=== PATIENT | female | born 1960 | race Caucasian/White ===

== ENCOUNTER 2017-04-03 12:41 | Observation (INO) ==
[2017-04-03] MEDS ORDERED: Ondansetron ODT 4 MG TAB.RAPDIS SL ONE (13:29)
--- NOTE | 2017-04-03 14:45 | Emergency Department Note ---
Disposition Clinical Impression: Hyponatremia Nausea and vomiting Qualifiers: Vomiting type: unspecified Vomiting Intractability: non-intractable Qualified Code(s): R11.2 - Nausea with vomiting, unspecified Disposition: Admitted As Inpatient Condition: Fair Referrals: Georgia Nuñez CNP [Primary Care Provider] - Forms: ED Satisfaction Letter Time of Disposition: 18:14 General Adult HPI - General Chief complaint: ED Nausea/Vomiting/Diarrhea Stated complaint: N/V/dizzy and cough Time Seen by Provider: 04/03/17 14:28 Source: patient Limitations: no limitations Nursing Notes Reviewed: Yes Vital Signs Reviewed: Yes - History of Present Illness HPI Narrative: Mrs. Howard, a 56yo female, presents from home for evaluation of a 6 week history of cough. This is productive described as thick, green sputum. Associated with congestion. Patient has been treated outpatient by her primary care physician and has completed a seven-day course of Levaquin with no improvement in her symptoms. She subsequent return to primary care provider who has started the patient on a 10 day course of Levaquin. Patient's symptoms have not been improved with outpatient antibiotics, Mucinex, Flonase, or her home albuterol inhaler. Patient also notes subjective fever last weekend she did not measure. She has occasional post tussive emesis. PMH: Hypertension, COPD Habits: Current every day smoker ROS: Positive: As above Negative: Dyspnea, diaphoresis, chest pain, palpitations, unusual back pain, ear pain, vertigo, changes in vision Pain Scale: 9 - Related Data Home Medications Medication Instructions Recorded Confirmed Citalopram [CeleXA] 20 mg PO DAILY 10/16/14 04/03/17 Albuterol Sulfate [Albuterol 2 puff IH Q4H PRN 04/03/17 04/03/17 Inhaler] Hydrocodone Bit/Homatrop Me-Br 5 ml PO Q6H PRN 04/03/17 04/03/17 [Hydrocodone-Homatropine Syrup] Loratadine [Claritin] 10 mg PO DAILY 04/03/17 04/03/17 Losartan [Cozaar] 25 mg PO DAILY 04/03/17 04/03/17 levoFLOXacin [Levofloxacin] 500 mg PO DAILY 04/03/17 04/03/17 Allergies Allergy/AdvReac Type Severity Reaction Status Date / Time No Known Allergies Allergy Verified 10/16/14 11:53 All systems ED: reviewed and negative except as stated. Review of Systems: As Per HPI Past Medical History - Past Medical History Medical history: Reports: no medical history, hypertension Psychiatric history: Reports: no psych history - Social History Smoking Status: Current some day smoker Smokeless Tobacco Status: No Alcohol use: Reports: occasionally Drug use: Reports: none Physical Exam Vital Signs Reviewed General: Patient is alert, oriented, and in mild distress-her eyes are watery and she is coughing mainly. No respiratory distress. HEENT: No facial asymmetry. Head is normocephalic and atraumatic. PERRLA, EOMI. Nasal turbinates moist and pale. Oral mucosa moist. Trachea midline. Cardiovascular: Heart regular rate and rhythm without clicks, rubs, gallops, or murmurs. No JVD. PMI nondisplaced. No pedal edema. Respiratory: Symmetric chest rise with good respiratory effort. Bilateral breath sounds show good air entry with scant crackles in the left lower and middle lobes. Abdomen: Bowel sounds present normoactive x-4 quadrants. Abdomen is soft, nondistended, and nontender. No organomegaly noted. Musculoskeletal: Spontaneously moving all extremities. Neuro: Alert and oriented 4. Sensation light touch intact. Psych: Patient's affect is appropriate for situation. - General Limitations: no limitations General appearance: alert Course Course Narrative: Patient has prolonged history of dyspnea resistant to outpatient Levaquin. Concern for possible Levaquin-induced SIADH. Her nausea and vomiting started this morning with multiple episodes of vomiting and even more episodes of dry heaving. Of concern, her sodium is low at 119. I discussed the patient with Dr. Clarke. From a clinical perspective, patient is hypovolemic. We will begin normal saline at maintenance rate and trend her sodium on the inpatient side. Patient's chest x-ray did not show pneumonia. Concern for possible Legionella or pulmonary and GI symptoms. Will CT chest, perform urinalysis, and draw urine Legionella antigen. I discussed the above the patient. She is agreeable to this plan of care with eventual admission to the hospitalist. Urine Legionella is negative. Analysis is unremarkable. CT chest showed small groundglass attenuation in the right pulmonary apex possible infectious versus scarring. Discussed the patient with the admitting hospitalist, Dr. Fabian, who agrees to accept the patient for continued evaluation and management with diagnosis of primary concern her hyponatremia. Chest X-Ray 04/03/17 14:40 IMPRESSION: No significant findings in the chest. D/ / Satinder Avila MD / Satinder Avila MD Interpreting Provider: Satinder Avila MD Chest CT 04/03/17 15:36 IMPRESSION: 1. Small 1.4 cm focus of ground-glass attenuation in the right lung apex, which is nonspecific. This could be a small focus of infectious or inflammatory change versus scarring. Otherwise no focal airspace consolidation or evidence of pulmonary edema. Re-evaluation on short-term follow-up CT chest in 3 months is recommended. 2. Mild centrilobular emphysema and mild bronchial wall thickening. 3. Sequelae of previous granulomatous disease. 4. A 5 mm noncalcified pulmonary nodule is noted along the right major fissure. Attention on follow-up CT chest. 5. Tiny hiatal hernia. 6. Moderate coronary artery calcification. D/ / 04/03/2017 16:20:13 Tara Cobb / Oliva Ortega Interpreting Provider: Tara Cobb Vital Signs Temperature 98.3 F 04/03/17 13:16 Pulse Rate 92 04/03/17 13:16 Respiratory Rate 18 04/03/17 13:16 Blood Pressure 179/103 04/03/17 13:16 O2 Sat by Pulse Oximetry 95 04/03/17 13:16 Temperature 98.3 F 04/03/17 13:16 Pulse Rate 82 04/03/17 15:17 Respiratory Rate 16 04/03/17 15:17 Blood Pressure 141/85 04/03/17 15:17 O2 Sat by Pulse Oximetry 96 04/03/17 15:17 Oxygen Delivery Oxygen Delivery Room Air Medical Decision Making - Medical Records Medical records reviewed: Yes I reviewed the patient's medical records. - Lab Data Result diagrams: 04/03/17 14:52 04/03/17 14:52 Lab Results 04/03/17 04/03/17 04/03/17 Range/Units 14:52 14:52 14:52 WBC 16.0 H (4.3-11.1) K/mcL RBC 3.71 L (3.82-4.97) M/mcL Hgb 12.4 (11.5-15.4) g/dL Hct 35.1 L (35.3-44.9) % MCV 94.6 (83.0-100.0) fL MCH 33.4 H (28.0-33.3) pg MCHC 35.3 (31.6-35.5) g/dL RDW 11.9 (11.5-14.5) % Plt Count 439 H (140-400) K/mcL MPV 9.6 (9.4-12.4) fL Seg Neutrophils % 78.0 % Lymphocytes % 12.0 % Monocytes % 8.0 % Eosinophils % 2.0 % Neutrophils # 12.5 H (1.6-8.9) K/mcL Lymphocytes # 1.9 (0.6-4.6) K/mcL Monocytes # 1.3 (0.0-1.3) K/mcL Eosinophils # 0.3 (0.0-0.6) K/mcL Reactive Lymphocytes Present A (Not Present) Platelet Estimate Slight increase H (Normal) Sodium 119 L* (136-145) mEq/L Potassium 3.5 (3.5-5.1) mEq/L Chloride 84 L (98-107) mEq/L Carbon Dioxide 28 (23-29) mEq/L BUN 7 (6-20) mg/dL Creatinine 0.57 L (0.60-1.20) mg/dL Est GFR ( Amer) > 60 (> 60) Est GFR (Non-Af Amer) > 60 (> 60) BUN/Creatinine Ratio 12 (6-26) Glucose 106 H (70-105) mg/dL Calculated Osmolality 246 L (280-300) Lactic Acid 0.9 (0.5-2.2) mmol/L Calcium 8.8 (8.6-10.3) mg/dL Total Bilirubin 0.4 (0.3-1.0) mg/dL Direct Bilirubin 0.1 (0.0-0.2) mg/dL Indirect Bilirubin 0.3 (0.0-1.2) mg/dL AST 24 (13-39) Units/L ALT 17 (7-52) Units/L Alkaline Phosphatase 70 (34-104) Units/L Troponin I (< 0.04) ng/mL Serum Total Protein 6.7 (6.4-8.9) g/dL Albumin 3.9 (3.5-5.7) g/dL Globulin 2.8 (2.4-3.5) g/dL Albumin/Globulin Ratio 1.4 (1.1-2.2) Lipase 31 (11-82) Units/L Urine Color (Yellow) Urine Clarity (Clear) Urine pH (5.0-8.0) pH Units Ur Specific Melba (1.010-1.025) Urine Protein (Neg-Trace) mg/dL Urine Glucose (UA) (Normal) mg/dL Urine Ketones (Negative) mg/dL Urine Blood (Negative) Urine Nitrite (Negative) Urine Bilirubin (Negative) Urine Urobilinogen (Normal) mg/dL Ur Leukocyte Esterase (Negative) Ur Culture Indicated? (NO) 04/03/17 04/03/17 Range/Units 14:52 16:27 WBC (4.3-11.1) K/mcL RBC (3.82-4.97) M/mcL Hgb (11.5-15.4) g/dL Hct (35.3-44.9) % MCV (83.0-100.0) fL MCH (28.0-33.3) pg MCHC (31.6-35.5) g/dL RDW (11.5-14.5) % Plt Count (140-400) K/mcL MPV (9.4-12.4) fL Seg Neutrophils % % Lymphocytes % % Monocytes % % Eosinophils % % Neutrophils # (1.6-8.9) K/mcL Lymphocytes # (0.6-4.6) K/mcL Monocytes # (0.0-1.3) K/mcL Eosinophils # (0.0-0.6) K/mcL Reactive Lymphocytes (Not Present) Platelet Estimate (Normal) Sodium (136-145) mEq/L Potassium (3.5-5.1) mEq/L Chloride (98-107) mEq/L Carbon Dioxide (23-29) mEq/L BUN (6-20) mg/dL Creatinine (0.60-1.20) mg/dL Est GFR ( Amer) (> 60) Est GFR (Non-Af Amer) (> 60) BUN/Creatinine Ratio (6-26) Glucose (70-105) mg/dL Calculated Osmolality (280-300) Lactic Acid (0.5-2.2) mmol/L Calcium (8.6-10.3) mg/dL Total Bilirubin (0.3-1.0) mg/dL Direct Bilirubin (0.0-0.2) mg/dL Indirect Bilirubin (0.0-1.2) mg/dL AST (13-39) Units/L ALT (7-52) Units/L Alkaline Phosphatase (34-104) Units/L Troponin I < 0.03 (< 0.04) ng/mL Serum Total Protein (6.4-8.9) g/dL Albumin (3.5-5.7) g/dL Globulin (2.4-3.5) g/dL Albumin/Globulin Ratio (1.1-2.2) Lipase (11-82) Units/L Urine Color Yellow (Yellow) Urine Clarity Clear (Clear) Urine pH 7.5 (5.0-8.0) pH Units Ur Specific Melba 1.005 L (1.010-1.025) Urine Protein Negative (Neg-Trace) mg/dL Urine Glucose (UA) Normal (Normal) mg/dL Urine Ketones Negative (Negative) mg/dL Urine Blood Negative (Negative) Urine Nitrite Negative (Negative) Urine Bilirubin Negative (Negative) Urine Urobilinogen Normal (Normal) mg/dL Ur Leukocyte Esterase Negative (Negative) Ur Culture Indicated? NO (NO) - EKG Data EKG #1 EKG attestation: Yes I reviewed and interpreted this EKG. EKG results narrative: EKG dated 2015 rates 2018 at 12:40 interpreted as sinus rhythm with rate of 93. Normal intervals. Normal axis. Nonspecific ST-T changes. No previous EKG for comparison.
[2017-04-03 15:18] LABS: Hematocrit 35.1 % (35.3-44.9); Hemoglobin 12.4 g/dL (11.5-15.4); Mean Corpuscular HGB Conc 35.3 g/dL (31.6-35.5); Mean Corpuscular Hemoglobin 33.4 pg (28.0-33.3); Mean Corpuscular Volume 94.6 fL (83.0-100.0); Mean Platelet Volume 9.6 fL (9.4-12.4); Platelet Count 439 K/mcL (140-400); Red Blood Count 3.71 M/mcL (3.82-4.97); Red Cell Distribution Width 11.9 % (11.5-14.5)
[2017-04-03 15:34] LABS: Alanine Aminotransferase 17 Units/L (7-52); Albumin 3.9 g/dL (3.5-5.7); Albumin/Globulin Ratio 1.4 (1.1-2.2); Alkaline Phosphatase 70 Units/L (34-104); Aspartate Amino Transferase 24 Units/L (13-39); BUN/Creatinine Ratio 12 (6-26); Bilirubin,Direct 0.1 mg/dL (0.0-0.2); Bilirubin,Indirect 0.3 mg/dL (0.0-1.2); Bilirubin,Total 0.4 mg/dL (0.3-1.0); Blood Urea Nitrogen 7 mg/dL (6-20); Calcium 8.8 mg/dL (8.6-10.3); Carbon Dioxide 28 mEq/L (23-29); Chloride 84 mEq/L (98-107); Globulin 2.8 g/dL (2.4-3.5); Glucose 106 mg/dL (70-105); Lipase 31 Units/L (11-82); Osmolality,Calculated 246 (280-300); Potassium 3.5 mEq/L (3.5-5.1); Sodium 119 mEq/L (136-145); Total Protein 6.7 g/dL (6.4-8.9); eGFR For African Americans > 60 (> 60); eGFR For Non-African Americans > 60 (> 60)
--- NOTE | 2017-04-03 15:57 | Emergency Department Note ---
START Narrative - START START: I examined this patient and my medical decision-making was reviewed with the Resident Physician. I agree with the documented findings, disposition and treatment plan as described except to the extent set forth below. 56 year old female presetns to the ED with complaints og N/V/cough and has been a recent dose of levauqin 10 day course x 2 and has been expereincingin dizziness as well although her neuro exam is within normla limits. It appears that her sodium is 119 and I am concerned for SIADH vs legionella as her WBC is 16. We have spoken with nephorlogist who does not recommedn 3% saline at this time due to normal mentation and no active vomitting or seizures. Patient will be admitted to [facility] nephro consult and they have reocommende NS at 125ml/hr rate.
[2017-04-03 16:27] LABS: Eosinophils # 0.3 K/mcL (0.0-0.6); Lymphocytes # 1.9 K/mcL (0.6-4.6); Monocytes # 1.3 K/mcL (0.0-1.3); Neutrophils # 12.5 K/mcL (1.6-8.9)
[2017-04-03 16:28] LABS: Reactive Lymphocytes Present (Not Present)
[2017-04-03 16:41] LABS: Bilirubin,Urine Negative (Negative); Blood,Urine Negative (Negative); Clarity,Urine Clear (Clear); Color,Urine Yellow (Yellow); Glucose,Urine (UA) Normal (Normal); Ketones,Urine Negative (Negative); Leukocyte Esterase,Urine Negative (Negative); Nitrite,Urine Negative (Negative); PH,Urine 7.5 pH Units (5.0-8.0); Protein,Urine Negative (Neg-Trace); Specific Gravity,Urine 1.005 (1.010-1.025); Urobilinogen,Urine Normal (Normal)
--- NOTE | 2017-04-03 17:15 | Electrocardiograph Report ---
[place] [facility] Test Date: 2017-04-03 Pat Name: Allie Howard Department: 104 Room: Gender: F [employer] Operator: TMR : 1960 Requested By: Alejandro Branch Order Number: [id number] Reading MD: Renzo Garza MD Measurements Intervals Mason Rate: 93 P: 57 AL: 154 QRS: 55 QRSD: 92 T: 35 QT: 358 QTc: 408 Interpretive Statements SINUS RHYTHM POSSIBLE LEFT ATRIAL ENLARGEMENT [-0.1mV P WAVE IN V1/V2] Electronically Signed On 04-03-2017 17:13:41 EST by Renzo Garza MD
[2017-04-03] MEDS ORDERED: Naloxone 0.4 MG/ML INJ IVP PRN (18:15)
[2017-04-03] MEDS ORDERED: *HR* OxyCODONE Immed Rel 5 MG TABLET PO PRN (18:15)
[2017-04-03] MEDS ORDERED: Ondansetron ODT 4 MG TAB.RAPDIS SL PRN (18:15)
[2017-04-03] MEDS ORDERED: Acetaminophen 325 MG TABLET PO PRN (18:15)
--- NOTE | 2017-04-03 18:21 | Internal Med History&Physical ---
Date of Encounter: 04/03/17 Time of Encounter: 18:19 Assessment and Plan (1) Hyponatremia Current visit: Yes Status: Acute Hyponatremia possibly secondary to dehydration Monitor sodium closely Check urine sodium and urine osmolality, consider fluid restriction if sodium is normal in urine The patient for GI prophylaxis and subcutaneous heparin for DVT prophylaxis. The patient will be admitted for observation. Full code. Time spent on this admission 40 minutes (2) Accelerated hypertension Current visit: Yes Status: Acute Continue ARB (3) Chronic cough Current visit: Yes Status: Acute The patient has been coughing for 6 weeks, unclear etiology A continue azithromycin Check QuantiFERON although there is a low suspicion for TB CT scan of the chest showed:1. Small 1.4 cm focus of ground-glass attenuation in the right lung apex, which is nonspecific. This could be a small focus of infectious or inflammatory change versus scarring. Otherwise no focal airspace consolidation or evidence of pulmonary edema. Re-evaluation on short-term follow-up CT chest in 3 months is recommended. 2. Mild centrilobular emphysema and mild bronchial wall thickening. 3. Sequelae of previous granulomatous disease. 4. A 5 mm noncalcified pulmonary nodule is noted along the right major fissure. Attention on follow-up CT chest. (4) Nausea and vomiting Current visit: Yes Status: Acute With dehydration Qualifiers: Vomiting type: unspecified Vomiting Intractability: non-intractable Qualified Code(s): R11.2 - Nausea with vomiting, unspecified (5) Acute bronchitis Current visit: No Status: Acute Qualifiers: Bronchitis organism: unspecified organism Qualified Code(s): J20.9 - Acute bronchitis, unspecified (6) Leukocytosis Current visit: Yes Status: Acute Qualifiers: Leukocytosis type: unspecified Qualified Code(s): D72.829 - Elevated white blood cell count, unspecified Internal Medicine - H&P: HPI Chief complaint: Severe cough, low sodium Admitted From: Emergency Dept History of present illness: Ms. Howard is a 56 year old female with a past medical history of COPD not oxygen dependent, tobacco use, depression, rosacea, comes emergency room complaining of 6 weeks of a chronic cough, bringing up greenish phlegm at times. Very congested. Completed a 7 day course of Levaquin last week and started another 10 day course prescribed by her primary care physician of Levaquin as well, currently she is on her second day. Sodium was found to be on 119 chloride 84. The patient has not been eating much lately and appears slightly dehydrated. CT scan of the chest shows and a small 1.4 cm groundglass attenuation in the right apex infectious versus inflammatory process. Legionella antigen was negative. The ER physician contacted Dr. Moody. Denies any other complaints, heart rate is 91 and blood pressure 179/107. Past Med Surg Social Fam HX - Past Medical History Medical history: COPD (Not oxygen dependent, not officially diagnosed), hypertension, other (Tobacco use, depression, colonic polyps, rosacea, hydradenitis, uterine prolapse, cystocele) Psychiatric history: no psych history - Past Surgical History Surgical History: other (Right breast lumpectomy nonmalignant, tubal ligation and ablation) - Social History Smoking Status: Current some day smoker Packs per day: Half a pack per day Smokeless Tobacco Status: No Alcohol use: occasionally Drug use: none - Additional Family History Additional family history: Father with gastric cancer Internal Medicine - H&P: Meds Citalopram [CeleXA] 20 mg PO DAILY 10/16/14 [History] Albuterol Sulfate [Albuterol Inhaler] 2 puff IH Q4H PRN 04/03/17 [History] Hydrocodone Bit/Homatrop Me-Br [Hydrocodone-Homatropine Syrup] 5 ml PO Q6H PRN 04/03/17 [History] Loratadine [Claritin] 10 mg PO DAILY 04/03/17 [History] Losartan [Cozaar] 25 mg PO DAILY 04/03/17 [History] levoFLOXacin [Levofloxacin] 500 mg PO DAILY 04/03/17 [History] 3 Allergy/AdvReac Type Severity Reaction Status Date / Time No Known Allergies Allergy Verified 10/16/14 11:53 All Systems PM: A 10-system review of systems was performed and is negative for pertinent findings except as documented above in the HPI. Review of systems: No dizziness, no other complaints other systems out of a 10 reviewed were negative - Constitutional Vitals: Temp Pulse Resp BP Pulse Ox 98.3 F 82 16 141/85 96 04/03/17 13:16 04/03/17 15:17 04/03/17 15:17 04/03/17 15:17 04/03/17 15:17 General appearance: Present: A&O X 3 - Head Head exam: Present: atraumatic, normocephalic - Eye Eye exam: Present: PERRL, conjuntiva pink, sclera anicteric Pupils: Present: PERRL - Neck Neck exam general surgery: Present: supple, trachea midline. Absent: lymphadenopathy - Respiratory Respiratory exam: Present: CTAB. Absent: accessory muscle use, rales, rhonchi, wheezes - Cardiovascular Cardiovascular exam: Present: RRR, +S1, +S2. Absent: diastolic murmur, gallop, rubs, systolic murmur - GI/Abdominal GI/Abdominal exam: Present: normal bowel sounds, soft, no peritoneal signs. Absent: distended, tenderness - Extremities Exam Extremities exam: Present: warm, radial pulses palpable and symmetrical. Absent : calf tenderness, cyanotic, pedal edema - Neurological Exam Neurological exam: Present: CN II-XII intact, oriented X3, no focal deficits. Absent: pronater drift, facial droop, speech deficit - Skin Skin exam: Present: dry, intact Internal Med - H&P Results - Labs CBC & Chem 7: 04/03/17 14:52 04/03/17 14:52 Labs: Short CBC 04/03/17 Range/Units 14:52 WBC 16.0 H (4.3-11.1) K/mcL Hgb 12.4 (11.5-15.4) g/dL Hct 35.1 L (35.3-44.9) % Plt Count 439 H (140-400) K/mcL Neutrophils # 12.5 H (1.6-8.9) K/mcL BMP 04/03/17 14:52 Sodium 119 L* Potassium 3.5 Chloride 84 L Carbon Dioxide 28 BUN 7 Creatinine 0.57 L Glucose 106 H Calcium 8.8 Cardiac Enzymes 04/03/17 Range/Units 14:52 Troponin I < 0.03 (< 0.04) ng/mL Liver Function 04/03/17 Range/Units 14:52 Total Bilirubin 0.4 (0.3-1.0) mg/dL Direct Bilirubin 0.1 (0.0-0.2) mg/dL AST 24 (13-39) Units/L ALT 17 (7-52) Units/L Alkaline Phosphatase 70 (34-104) Units/L Albumin 3.9 (3.5-5.7) g/dL Urine 04/03/17 Range/Units 16:27 Urine Color Yellow (Yellow) Urine Clarity Clear (Clear) Urine pH 7.5 (5.0-8.0) pH Units Ur Specific [place] 1.005 L (1.010-1.025) Urine Protein Negative (Neg-Trace) mg/dL Urine Glucose (UA) Normal (Normal) mg/dL - Impressions ITS Impressions Chest X-Ray 04/03/17 14:40 IMPRESSION: No significant findings in the chest. D/ / Satinder Avila MD / Satinder Avila MD Interpreting Provider: Satinder Avila MD Chest CT 04/03/17 15:36 IMPRESSION: 1. Small 1.4 cm focus of ground-glass attenuation in the right lung apex, which is nonspecific. This could be a small focus of infectious or inflammatory change versus scarring. Otherwise no focal airspace consolidation or evidence of pulmonary edema. Re-evaluation on short-term follow-up CT chest in 3 months is recommended. 2. Mild centrilobular emphysema and mild bronchial wall thickening. 3. Sequelae of previous granulomatous disease. 4. A 5 mm noncalcified pulmonary nodule is noted along the right major fissure. Attention on follow-up CT chest. 5. Tiny hiatal hernia. 6. Moderate coronary artery calcification. D/ / 04/03/2017 16:20:13 Tara Cobb / Oliva Ortega Interpreting Provider: Tara Cobb
[2017-04-03] MEDS ORDERED: Ipratropium/Albuterol Neb 3 ML IH PRN (18:28)
[2017-04-03] MEDS: 0.9 % Sodium Chloride 1,000 ML IVC SCH (18:35)
[2017-04-03] MEDS: Azithromycin 500 MG in D5% in Water 250 ML IVPB SCH (20:26)
[2017-04-03 20:42] LABS: Sodium, Urine 19.7 mEq/L
[2017-04-03] MEDS: Benzonatate 100 MG CAPSULE PO PRN (20:47)
[2017-04-03] MEDS: *HR* Heparin 5,000 UNIT/ML VIAL SQ SCH (20:48)
[2017-04-04] MEDS: GuaiFENesin Liq 200 MG/10 ML UDC PO PRN ×2 (02:53→21:24)
[2017-04-04 03:32] LABS: BUN/Creatinine Ratio 10 (6-26); Blood Urea Nitrogen 6 mg/dL (6-20); Calcium 8.9 mg/dL (8.6-10.3); Carbon Dioxide 29 mEq/L (23-29); Chloride 98 mEq/L (98-107); Glucose 108 mg/dL (70-105); Osmolality,Calculated 272 (280-300); Potassium 3.6 mEq/L (3.5-5.1); Sodium 132 mEq/L (136-145); eGFR For African Americans > 60 (> 60); eGFR For Non-African Americans > 60 (> 60)
[2017-04-04] MEDS: *HR* Heparin 5,000 UNIT/ML VIAL SQ SCH ×3 (05:37→21:24)
[2017-04-04] MEDS: 0.9 % Sodium Chloride 1,000 ML IVC SCH ×2 (05:37→09:19)
--- NOTE | 2017-04-04 11:33 | Nephrology Consult Note ---
Date of Encounter: 04/04/17 Time of Encounter: 10:30 Assessment and Plan (1) Hyponatremia Current Visit: Yes Status: Acute Hyponatremia in setting of GI losses with excess water intake days prior. Sodium improved 132. Will treat conservatively given history. Now taking in appropriate oral intake, no further emesis. Will continue to monitor. History of Present Illness - Reason for Consult hyponatremia - History of Present Illness Ms. Howard is a 56 year old female presented to ER with intractable vomiting yesterday. She states she had been on two rounds of Levaquin in prior weeks for ongoing lung infection with productive cough with green sputum. Also taking Mucinex, Flonase and Albuterol inhaler. Labs revealed sodium 119 and was started on NS at 125 cc/hr. That has subsequently been stopped with sodium now of 132. Renal fct normal. Concern for Levaquin induced SIADH.She states she was very dizzy yesterday but denied headache And that she feels like a totally different person today, feeling much better. Other PMH-HTN, COPD, current smoker. Ms. Howard states in past has had low sodium levels in the setting of excess water intake of 2-3 gallons daily because she thought healthy, not because of thirst. Labs in early to mid 2017, Sodium ranged 130-131. Told by PCP to cut back and now drinks 8-10 cups water daily but had recently been drinking more because advice on Mucinex box said to drink lots of water. She states yesterday had emesis all day, could not keep anything down. Denied diarrhea. Past Med Surg Social Fam HX - Past Medical History Medical history: COPD, hypertension, other Psychiatric history: no psych history - Past Surgical History Surgical History: other - Social History Smoking Status: Current some day smoker Packs per day: Half a pack per day Smokeless Tobacco Status: No Alcohol use: occasionally Drug use: none Medications and Allergies Citalopram [CeleXA] 20 mg PO DAILY 10/16/14 [History] Albuterol Sulfate [Albuterol Inhaler] 2 puff IH Q4H PRN 04/03/17 [History] Hydrocodone Bit/Homatrop Me-Br [Hydrocodone-Homatropine Syrup] 5 ml PO Q6H PRN 04/03/17 [History] Loratadine [Claritin] 10 mg PO DAILY 04/03/17 [History] Losartan [Cozaar] 25 mg PO DAILY 04/03/17 [History] levoFLOXacin [Levofloxacin] 500 mg PO DAILY 04/03/17 [History] 3 Allergy/AdvReac Type Severity Reaction Status Date / Time No Known Allergies Allergy Verified 10/16/14 11:53 Exam - Vital Signs Vital signs: Initial Vital Signs Temp Pulse Resp BP Pulse Ox 98.3 F 92 18 179/103 95 04/03/17 13:16 04/03/17 13:16 04/03/17 13:16 04/03/17 13:16 04/03/17 13:16 Vital Signs - Last 8 Hours Temp Pulse Resp BP Pulse Ox 04/04/17 10:54 98.4 F 80 15 147/83 97 04/04/17 07:02 97.7 F 72 15 118/75 95 04/04/17 04:29 98.4 F 78 16 130/80 92 Intake and Output 04/03/17 04/04/17 04/04/17 23:59 07:59 15:59 Intake Total 1000 / 1000 500 / 500 Output Total 500 / 500 1200 / 1200 0 / 0 Balance -500 / -500 -200 / -200 500 / 500 Intake: IV Fluids 1000 / 1000 500 / 500 0.9 % Sodium Chloride 1,000 ML 1000 / 1000 500 / 500 @ 125 mls/hr IVC .Q8H [facility] Rx#: [id number] Oral 0 / 0 Output: Urine 500 / 500 1200 / 1200 0 / 0 Other: Meal Breakfast Percent of Meal Consumed 70% Weight 70.125 kg Patient Weight 04/04/17 23:59 Weight 70.125 kg - General Appearance General appearance: well-developed, well-nourished, appears started age EENT: mucous membranes moist Neck: no JVD Respiratory: clear Cardiology: no edema, regular rate, regular rhythm Gastrointestinal: normoactive bowel sounds, no tenderness Integumentary: warm and dry Neurologic: alert and oriented x3 Psychiatric: mood/affect appropriate, cooperative Results - Lab Results 04/03/17 14:52 04/04/17 02:48 Most recent lab results Calcium 8.9 mg/dL (8.6-10.3) 04/04/17 02:48 Urine Sodium 19.7 mEq/L 04/03/17 20:15 Consult Discharge Plan - Plan Referrals: Georgia Nuñez, [employer]PER[employer] TRA[employer] [Primary Care Provider] - (web request 04/04/2017)
--- NOTE | 2017-04-04 15:57 | Internal Med Progress Note ---
Date of Encounter: 04/04/17 Time of Encounter: 09:10 - Assessment and plan (1) Hyponatremia Current Visit: Yes Status: Acute Assessment and plan: Hypoosmolar hyponatremia in the setting of GI losses with vomiting, recent increased free water intake. Urine osmolality noted to be 88. Serum sodium improved to 132 today. We will discontinue IV hydration and continue to monitor serum sodium closely. Nephrology consult appreciated. (2) Viral infection Current Visit: Yes Status: Acute Assessment and plan: Has had acute bronchitis recently and was treated with a course of by mouth prednisone and Levaquin. Also developed nausea and vomiting yesterday, currently resolved. Continue supportive care. Continue azithromycin. (3) COPD (chronic obstructive pulmonary disease) Current Visit: Yes Status: Suspected Assessment and plan: Suspected given her smoking history. Not in acute exacerbation. Continue when necessary bronchodilators, not requiring supplemental oxygen. CT chest shows no evidence of lobar consolidation but does show bilateral scarring and small pulmonary nodules, discussed with patient, recommend outpatient follow-up in 3-6 months. Smoking cessation counseling has been done for 4 minutes, patient is very motivated to quit smoking. Declines nicotine transdermal patch. Qualifiers: COPD type: unspecified COPD Qualified Code(s): J44.9 - Chronic obstructive pulmonary disease, unspecified (4) Tobacco abuse Current Visit: Yes Status: Chronic (5) Essential hypertension Current Visit: Yes Status: Chronic - Subjective Interval history: Reports feeling much better. Improved cough and shortness of breath. No fever/ chills, improved nausea, vomiting; no abdominal pain or diarrhea. - Constitutional Vitals: Temp Pulse Resp BP Pulse Ox 98.0 F 75 15 108/69 96 04/04/17 15:43 04/04/17 15:43 04/04/17 15:43 04/04/17 15:43 04/04/17 15:43 General appearance: Present: A&O X 3, answers questions appropriately - Respiratory Respiratory exam: Present: CTAB. Absent: accessory muscle use, rales, rhonchi, wheezes - Cardiovascular Cardiovascular exam: Present: RRR, +S1, +S2. Absent: diastolic murmur, gallop, rubs, systolic murmur - GI/Abdominal GI/Abdominal exam: Present: normal bowel sounds, soft, no peritoneal signs. Absent: distended, tenderness - Extremities Exam Extremities exam: Present: full ROM, warm, radial pulses palpable and symmetrical. Absent: calf tenderness, cyanotic, pedal edema - Neurological Exam Neurological exam: Present: CN II-XII intact, oriented X3, no focal deficits. Absent: pronater drift, facial droop, speech deficit Internal Medicine: Result - Labs CBC & Chem 7: 04/03/17 14:52 04/04/17 02:48 Labs: BMP 04/03/17 04/04/17 22:54 02:48 Sodium 129 L D 132 L Potassium 3.6 Chloride 98 Carbon Dioxide 29 BUN 6 Creatinine 0.61 Glucose 108 H Calcium 8.9 Consult Discharge Plan - Plan Referrals: Georgia Nuñez, [employer] SUPERINTENDENT [Primary Care Provider] - (web request 04/04/2017)
[2017-04-04] MEDS: Benzonatate 100 MG CAPSULE PO PRN (17:19)
[2017-04-04 17:47] LABS: Adenovirus Not Detected (Not Detect); Bordetella Pertussis Not Detected (Not Detect); Chlamydophila pneumoniae Not Detected (Not Detect); Coronavirus 229E Not Detected (Not Detect); Coronavirus HKU1 Not Detected (Not Detect); Coronavirus NL63 Not Detected (Not Detect); Coronavirus OC43 Not Detected (Not Detect); Human Metapneumovirus Not Detected (Not Detect); Human Rhinovirus/Enterovirus Not Detected (Not Detect); Influenza A Subtype 2009 H1 Not Detected (Not Detect); Influenza A Untypeable Not Detected (Not Detect); Influenza B Not Detected (Not Detect); Mycoplasma pneumoniae Not Detected (Not Detect); Parainfluenza Virus 1 Not Detected (Not Detect); Parainfluenza Virus 2 Not Detected (Not Detect); Parainfluenza Virus 3 Not Detected (Not Detect); Parainfluenza Virus 4 Not Detected (Not Detect); Respiratory Syncytial Virus Not Detected (Not Detect)
[2017-04-04] MEDS: Azithromycin 500 MG in D5% in Water 250 ML IVPB SCH (19:39)
[2017-04-05] MEDS: GuaiFENesin Liq 200 MG/10 ML UDC PO PRN (03:28)
[2017-04-05 06:13] LABS: BUN/Creatinine Ratio 15 (6-26); Blood Urea Nitrogen 9 mg/dL (6-20); Calcium 8.8 mg/dL (8.6-10.3); Carbon Dioxide 27 mEq/L (23-29); Chloride 103 mEq/L (98-107); Glucose 97 mg/dL (70-105); Magnesium 1.9 mg/dL (1.6-2.6); Osmolality,Calculated 281 (280-300); Potassium 3.7 mEq/L (3.5-5.1); Sodium 136 mEq/L (136-145); eGFR For African Americans > 60 (> 60); eGFR For Non-African Americans > 60 (> 60)
[2017-04-05] MEDS: Benzonatate 100 MG CAPSULE PO PRN (06:24)
[2017-04-05] MEDS: *HR* Heparin 5,000 UNIT/ML VIAL SQ SCH (06:24)
--- NOTE | 2017-04-05 09:37 | Discharge Summary ---
Date of Encounter: 04/05/17 Time of Encounter: 09:35 - Discharge Diagnosis (1) Hyponatremia Priority: Primary Status: Acute (2) Viral infection Priority: Primary Status: Acute (3) COPD (chronic obstructive pulmonary disease) Priority: Secondary Status: Suspected Qualifiers: COPD type: unspecified COPD Qualified Code(s): J44.9 - Chronic obstructive pulmonary disease, unspecified (4) Tobacco abuse Priority: Secondary Status: Chronic (5) Essential hypertension Priority: Secondary Status: Chronic - Discharge Medications Prescriptions: GuaiFENesin Liq [Robitussin Liq] 200 mg PO Q6HR PRN 10 Days udc PRN Reason: Cough Azithromycin [Zithromax] 250 mg PO DAILY #3 tablet Home Medications: Citalopram [CeleXA] 20 mg PO DAILY 10/16/14 [History] Albuterol Sulfate [Albuterol Inhaler] 2 puff IH Q4H PRN 04/03/17 [History] Hydrocodone Bit/Homatrop Me-Br [Hydrocodone-Homatropine Syrup] 5 ml PO Q6H PRN 04/03/17 [History] Loratadine [Claritin] 10 mg PO DAILY 04/03/17 [History] Losartan [Cozaar] 25 mg PO DAILY 04/03/17 [History] Azithromycin [Zithromax] 250 mg PO DAILY #3 tablet 04/05/17 [Rx] GuaiFENesin Liq [Robitussin Liq] 200 mg PO Q6HR PRN 10 Days udc 04/05/17 [Rx] Allergies/Adverse Reactions: 3 Allergy/AdvReac Type Severity Reaction Status Date / Time No Known Allergies Allergy Verified 10/16/14 11:53 - Notes to Outpatient Provider Please f/up CT chest in 3-6 months for scarring and lung nodules; Date of admission: 04/03/17 18:30 Primary care physician: Georgia Nuñez CNP Discharging clinician: Oralia Marlow Anticipated date of discharge: 04/05/17 - Patient Status Disposition: Home, Self-Care Condition: Good Functional capacity at discharge: independent ambulation Overall status at discharge: patient is progressing back to baseline - Discharge Instructions Instructions: Hyponatremia (DC), Chronic Hypertension (DC) Follow Up With: Georgia Nuñez CNP [Primary Care Provider] - (web request 04/04/2017) Additional Instructions: F/up with PCP in 1-2 weeks - Diet and Activity Activity: resume usual activities as tolerated Diet: advance to your usual diet, low fat, low cholesterol, low salt diet Hospital course: Ms. Howard is a 56 year old female who was admitted with flu-like symptoms. She was taking Mucinex at home along with large quantities of free water for the last few days due to flu, runny nose and congestion. She then developed significant nausea and vomiting the day prior to this admission. SHe was noted to have hypoosmolar hyponatremia at admission, received IV hydration briefly, and serum sodium significantly improved from 119 to 129, and now to 136. SHe was seen by nEPHROLOGY, who recommend no further followup or monitoring and this episode may be due to excess free water consumption and GI losses. Respiratory viral panel was negative. Urine Legionella Ag was negative. She is currently medically stable for discharge. Time spent discussing smoking cessation with patient: 3 to 10 minutes - Time Spent with Patient Total time spent providing and/or coordinating discharge services: Greater than 30 minutes (40 min) - Constitutional Vitals: Temp Pulse Resp BP Pulse Ox 98.1 F 80 17 129/79 94 04/05/17 06:59 04/05/17 06:59 04/05/17 06:59 04/05/17 06:59 04/05/17 06:59 General appearance: Present: A&O X 3, answers questions appropriately - Respiratory Respiratory exam: Present: CTAB. Absent: accessory muscle use, rales, rhonchi, wheezes
--- NOTE | 2017-04-05 09:39 | Nephrology Progress Note ---
Date of Encounter: 04/05/17 Time of Encounter: 09:25 - Assessment and Plan (1) Hyponatremia Current Visit: Yes Status: Acute Hyponatremia in setting of GI losses with excess water intake days prior. Sodium improved 136. Will treat conservatively given history. Now taking in appropriate oral intake, no further emesis. Will sign off, no need for office follow up. Subjective Interval history: Ambulating in room, states feels much better. Objective - Vital Signs Vital signs: Vital Signs Temp Pulse Resp BP Pulse Ox 04/05/17 06:59 98.1 F 80 17 129/79 94 04/05/17 04:03 98.1 F 77 16 122/76 97 04/04/17 23:26 98.2 F 80 16 148/89 96 04/04/17 18:30 98.3 F 81 18 126/81 96 04/04/17 15:43 98.0 F 75 15 108/69 96 04/04/17 10:54 98.4 F 80 15 147/83 97 Intake and Output 04/04/17 04/05/17 04/05/17 23:59 07:59 15:59 Intake Total 800 / 800 1700 / 1700 240 / 240 Output Total 1150 / 1150 1000 / 1000 Balance -350 / -350 700 / 700 240 / 240 Intake: Oral 800 / 800 1700 / 1700 240 / 240 Output: Urine 1150 / 1150 1000 / 1000 Other: Meal Dinner Breakfast Percent of Meal Consumed 100% 100% Weight 71.6 kg Patient Weight 04/05/17 23:59 Weight 71.6 kg - General Appearance General appearance: Present: well-developed, well-nourished, appears started age EENT: Present: mucous membranes moist Neck: Present: no JVD Respiratory: Present: clear Cardiology: Present: no edema, regular rate, regular rhythm Gastrointestinal: Present: normoactive bowel sounds, no tenderness Integumentary: Present: warm and dry Neurologic: Present: alert and oriented x3 - Lab 04/03/17 14:52 04/05/17 04:58 Most recent lab results Calcium 8.8 mg/dL (8.6-10.3) 04/05/17 04:58 Magnesium 1.9 mg/dL (1.6-2.6) 04/05/17 04:58 Urine Sodium 19.7 mEq/L 04/03/17 20:15 Consult Discharge Plan - Plan Instructions: Hyponatremia (DC), Chronic Hypertension (DC) Referrals: Georgia Nuñez, DEPLOYMENT ENGINEER [Primary Care Provider] - (web request 04/04/2017)
[2017-04-05 11:14] VITALS: BP 112/55
[2017-04-07 15:10] LABS: QuantiFERON Mitogen minus NIL 7.93 IU/mL; QuantiFERON-TB minus NIL 0.02 IU/mL (0.00-0.34)
[2017-04-07 15:15] LABS: QuantiFERON NIL 0.09 IU/mL; QuantiFERON-TB Gold In-Tube NEGATIVE (Negative)
== END 2017-04-05 10:11 | disposition home or self-care (01) ==
LOC: EMEROO 12:41 → 2ANU 12:41 → SUATTDRO 18:30 → 2ANU 20:00
PROVIDERS: ADMIT Internal Medicine; ATTEND Internal Medicine